=== PATIENT | female | born 1935 | race Native Hawaiian/Other Pacific Islander ===

== ENCOUNTER 2017-11-03 10:06 | Day surgery (SDC) | payer OTHER | END 2017-11-03 12:55 | disposition home or self-care (01) | LOC: OR 10:06 | PROC: 08RJ3JZ Replacement of Right Lens with Synthetic Substitute, Percutaneous Approach (ICD-10-PCS; principal; 2017-11-03) | DX: H25.811 Combined forms of age-related cataract, right eye (principal) | CPT/HCPCS: 66984; V2632 ==

== ENCOUNTER 2018-01-05 06:26 | Day surgery (SDC) | payer OTHER | END 2018-01-05 08:20 | disposition home or self-care (01) | LOC: OR 06:26 | PROC: 08RK3JZ Replacement of Left Lens with Synthetic Substitute, Percutaneous Approach (ICD-10-PCS; principal; 2018-01-05) | DX: H25.812 Combined forms of age-related cataract, left eye (principal) | CPT/HCPCS: 66984; V2632 ==